=== PATIENT | male | born 2005 | race Caucasian/White ===

== ENCOUNTER → 2023-02-04 | Outpatient (REF) ==
[~2023-02-04] MED LIST: AMOXICILLI400 MG/51 PO; AMOXICILLIN 50500 MG PO; ATOMOXETINE
== END ==
LOC: COL.CARD 09:44
DX: Z18.10 Retained metal fragments, unspecified (principal)

== ENCOUNTER → 2023-02-05 | Outpatient (REF) | LOC: COL.CARD 08:18 | DX: Z01.810 Encounter for preprocedural cardiovascular examination (principal) ==